=== PATIENT | male | born 1960 | race African-American/Black ===

== ENCOUNTER → 2016-06-10 | Outpatient (CLI) | payer BC, OTHER ==
[2016-06-10 14:31] LABS: APPEARANCE,URINE CLEAR; BILIRUBIN,URINE NEGATIVE (NEGATIVE); GLUCOSE, URINE >=500 mg/dL (NEGATIVE); KETONES,URINE NEGATIVE (NEGATIVE); LEUKOCYTE ESTERASE,URINE NEGATIVE (NEGATIVE); NITRITE,URINE NEGATIVE (NEGATIVE); PROTEIN,URINE 30 mg/dL (NEGATIVE); URINE SPECIFIC GRAVITY 1.028; UROBILINOGEN,URINE NEGATIVE mg/dL (<2.0)
[2016-06-10 14:39] LABS: ABSOLUTE EOSINOPHILS # (AUTO) 0.1 10^3/uL (0.0-0.6); ABSOLUTE MONOCYTES (AUTO) 0.6 10^3/uL (0.1-1.4); ABSOLUTE NEUT (AUTO) 4.7 10^3/uL (1.7-8.2); BASOPHILS % (AUTO) 0.4 % (0-2); EOSINOPHILS % (AUTO) 2.1 % (0-6); HEMOGLOBIN 13.6 g/dL (13.5-17.0); HGB HCT DIFFERENCE -1.2; MEAN CORPUSCULAR HEMOGLOBIN 29.5 pg (27.0-33.4); MEAN CORPUSCULAR HGB CONC 32.4 g/dL (32.0-36.0); MEAN CORPUSCULAR VOLUME 91 fl (80-97); MONOCYTES % (AUTO) 9.6 % (3-13); RED BLOOD COUNT 4.62 10^6/uL (4.35-5.55); RED CELL DISTRIBUTION WIDTH 15.1 % (11.5-14.0); SEGMENTED NEUTROPHILS % (AUTO) 72.9 % (42-78); WHITE BLOOD COUNT 6.4 10^3/uL (4.0-10.5)
[2016-06-10 15:03] LABS: ANION GAP 10 (5-19); BLOOD UREA NITROGEN 18 mg/dL (7-20); CALCIUM 9.8 mg/dL (8.4-10.2); CARBON DIOXIDE 30 mmol/L (22-30); CHLORIDE 105 mmol/L (98-107); CREATININE RESULT 0.91 mg/dL (0.52-1.25); GLUCOSE 200 mg/dL (75-110); POTASSIUM 4.7 mmol/L (3.6-5.0); SODIUM 145.2 mmol/L (137-145)
--- NOTE | 2016-06-11 09:22 | EKG REPORT ---
SEVERITY:- OTHERWISE NORMAL ECG - SINUS RHYTHM BORDERLINE LEFT AXIS DEVIATION : Confirmed by: Rola Marcial 11-Jun-2016 09:20:55
== END ==
LOC: OD 12:21
PROVIDERS: ATTEND Orthopaedic Surgery
DX: Z01.810 Encounter for preprocedural cardiovascular examination (principal); Z01.811 Encounter for preprocedural respiratory examination; Z01.818 Encounter for other preprocedural examination; Z79.899 Other long term (current) drug therapy; E11.9 Type 2 diabetes mellitus without complications; M70.22 Olecranon bursitis, left elbow
CPT/HCPCS: 36415; 71020; 80048; 81001; 83036; 85025; 93005; 93010

== ENCOUNTER → 2016-06-18 | Outpatient (CLI) | payer BC, OTHER ==
--- NOTE | 2016-06-18 19:44 | XCELERA REPORT ---
[address] [address] Transthoracic Echocardiogram Report Name: GINNY QUINTEROS Age: 56 yrs Gender: Male : 1960 Patient Status: Outpatient Patient Location: Study Date: 06/18/2016 01:55 PM Height: 74 in Weight: 266 lb BSA: 2.5 m2 Reason For Study: Z13.6 SCREENING FOR CARDIAC DISORDER Ordering Physician: ALLEN YODER PA-C Performed By: Maxine Garcia Interpretation Summary Very mild AV sclerosis with no doppler evidence of , and no AR, but AV configuration not clear. MV appears normal , no MS no MVP and no MR, and borderline LA enlargement. Mild asymmetric LVH , IVS prob 16 mm and PW 13 mm, normal LVEF 55-60% with stage I LV diastolic dysfunction. Not all LV segments imaged, see diagram , most segments imaged appeared to contract and moved normally. Right heart poorly visualised, unable to r/o pulm hypertension since TR not seen not sampled. MMode/2D Measurements \T\ Calculations RVDd: 2.8 cm LVIDd: 5.2 cmFS: 30.7 % Ao root diam: 3.7 cm IVSd: 1.3 cm LVIDs: 3.6 cmEDV(Teich): 130.6 ml LVPWd: 1.3 cmESV(Teich): 55.0 ml Ao root area: 10.9 cm2 EF(Teich): 57.9 % LA dimension: 4.3 cm LVOT diam: 2.7 cm LVOT area: 5.6 cm2 Doppler Measurements \T\ Calculations MV E max kalin: MV P1/2t max kalin: Ao V2 max: LV V1 max P.8 cm/sec 55.5 cm/sec 130.9 cm/sec 4.6 mmHg MV A max kalin: MV P1/2t: 57.1 msec Ao max PG: LV V1 max: 63.8 cm/sec MVA(P1/2t): 3.9 cm2 6.9 mmHg 106.8 cm/sec MV E/A: 0.86 MV dec slope: ANKIT(V,D): 4.6 cm2 285.0 cm/sec2 MV dec time: 0.20 sec PA V2 max: 77.5 cm/sec PA max P.4 mmHg Left Ventricle The left ventricle is normal in size. There is moderate asymmetric left ventricular hypertrophy. The left ventricular ejection fraction is normal. LV EF is 55-60%. Doppler measurements suggest impaired left ventricular relaxation, which is associated with grade I/IV or mild diastolic dysfunction. Regional wall motion abnormalities cannot be excluded due to limited visualization. There is no thrombus. Right Ventricle The right ventricle is not well visualized secondary to technical limitations. Atria Right atrium not well visualized secondary to technical limitations. The left atrium is mildly dilated. The interatrial septum is intact with no evidence for an atrial septal defect. Mitral Valve The mitral valve is grossly normal. There is no mitral annular calcification. There is no evidence of mitral valve prolapse. There is no vegetation seen on the mitral valve. There is no mitral valve stenosis. There is no mitral regurgitation noted. Aortic Valve The aortic valve opens well. The aortic valve is not well visualized secondary to technical limitations. Cannot exclude aortic valvular vegetation. There is no aortic valve stenosis. No aortic regurgitation is present. Tricuspid Valve The tricuspid valve is not well visualized secondary to technical limitations. No tricuspid regurgitation. Pulmonic Valve The pulmonic valve is not well visualized. Great Vessels The aortic root is normal size. Effusions Minimal pericardial effusion. I WMSI = 1.00 % Normal = 100 Segments Size X - Cannot 1 - Normal 2 - 3 - Akinetic4 - 1-2 small Interpret Hypokinetic Dyskinetic 3-5 moderate 5 - 6-14 large Aneurysmal 15-16 diffuse : ALLEN YODER PA-C > Dennis Lamb
== END ==
LOC: SP 13:24
PROVIDERS: ATTEND Physician Assistant
DX: Z13.6 Encounter for screening for cardiovascular disorders (principal)
CPT/HCPCS: 93306

== ENCOUNTER 2016-06-25 08:34 | Day surgery (SDC) | payer BC, OTHER ==
[~2016-06-25 08:34] MED LIST: CEFAZOLIN 2 GM/D5W RTU 2 GM/50 ML RTUPB IV PRN; LACTATED RINGERS 1000 ML IV PRN
[2016-06-25] MEDS ORDERED: ONDANSETRON HCL INJ/PF 4 MG/2 ML SDV IV PRN (09:07)
[2016-06-25] MEDS ORDERED: MEPERIDINE HCL/PF INJ 25 MG/1 ML DISP.SYRIN IV PRN (09:07)
[2016-06-25] MEDS ORDERED: PROMETHAZINE HCL INJ 25 MG/1 ML VIAL IV PRN (09:07)
[2016-06-25] MEDS ORDERED: MORPHINE SULFATE 10 MG/ML INJ IV PRN (09:07)
[2016-06-25] MEDS ORDERED: DIPHENHYDRAMINE HCL 50 MG/ML VIAL IV PRN (09:07)
[2016-06-25] MEDS ORDERED: FENTANYL CITRATE INJ/PF 100 MCG/2 ML AMPUL IV PRN ×3 (09:07)
[2016-06-25] MEDS ORDERED: PROPOFOL INJ 200 MG/20 ML VIAL IV ONE (09:13)
[2016-06-25] MEDS ORDERED: MIDAZOLAM 2 MG/2 ML INJ ONE (09:13)
[2016-06-25] MEDS ORDERED: HYDROMORPHONE HCL INJ/PF 2 MG/ML AMPULE ONE (09:13)
[2016-06-25] MEDS ORDERED: FENTANYL CITRATE INJ/PF 100 MCG/2 ML AMPUL ONE (09:13)
[2016-06-25] MEDS ORDERED: ACETAMINOPHEN 100 ML IV ONE (09:13)
[2016-06-25] MEDS ORDERED: BUPIVACAINE HCL 0.25 % INJ/PF (2.5 MG/1 ML) 30 ML VIAL ONE (10:12)
[2016-06-25] MEDS ORDERED: SUCCINYLCHOLINE CHLORIDE INJ 200 MG/10 ML VIAL ONE (10:16)
--- NOTE | 2016-06-25 10:41 | Operative Report ---
Operative Report DATE OF SURGERY: 06/25/16 PREOPERATIVE DIAGNOSIS: Left olecranon bursitis OPERATION: Left olecranon bursa excision SURGEON: ANGY SHEPHERD ANESTHESIA: GA TISSUE REMOVED OR ALTERED: Bursa to pathology ESTIMATED BLOOD LOSS: 75 PROCEDURE: With the patient is sloppy right lateral decubitus position on the operating table the left upper extremity is rated across his chest and prepped and draped in a sterile fashion. A longitudinal incision was made over the medial third of the olecranon bursa which is easily palpable. Sharp dissection was used to carry the incision through the subcutaneous fat. The bursa is then enucleated by soft tissue blunt dissection over its entire border. The deep dissection is down on at the level of the olecranon. The ulnar nerve is identified and protected throughout the dissection. The wound is then irrigated. Hemostasis obtained with electrocautery. The wound is reapproximated cemented Vicryl followed by arielle. A sterile compressive dressing was applied and the patient 's returned to PACU in satisfactory condition.
[2016-06-25] MEDS ORDERED: OXYCODONE HCL IR 5 MG TABLET PO PRN (11:19)
[2016-06-25] MEDS ORDERED: ONDANSETRON 4 MG TAB.RAPDIS SL PRN (11:19)
[2016-06-25 13:08] VITALS: BP 116/71
== END 2016-06-25 12:15 | disposition home or self-care (01) ==
LOC: OROUT 08:34
PROVIDERS: ATTEND Orthopaedic Surgery
PROC: 0MB Bursae and Ligaments, Excision (ICD-10-PCS; principal; 2016-06-25 10:00)
DX: M70.22 Olecranon bursitis, left elbow (principal); M25.822 Other specified joint disorders, left elbow; I10 Essential (primary) hypertension; E11.9 Type 2 diabetes mellitus without complications; E78.5 Hyperlipidemia, unspecified; Z79.84 Long term (current) use of oral hypoglycemic drugs; Z79.899 Other long term (current) drug therapy; Z88.6 Allergy status to analgesic agent; Z79.4 Long term (current) use of insulin
CPT/HCPCS: 82962; 88304 ×2; 24105; J2250; J1170; J0330; J2704; J0690; J0131; 1710; J3010

== ENCOUNTER → 2017-01-31 | Outpatient (CLI) | payer BC, OTHER ==
--- NOTE | 2017-01-31 10:21 | RADIOLOGY REPORT (SQ) ---
EXAM DESCRIPTION: CT LUMBAR SPINE WITHOUT COMPLETED DATE/TIME: 01/31/2017 9:25 am REASON FOR STUDY: LUMBOSACRAL RADICULOPATHY M54.17 RADICULOPATHY, LUMBOSACRAL REGION COMPARISON: None. TECHNIQUE: Axial images acquired through the lumbar spine without intravenous contrast. Images revi ewed with lung, soft tissue and bone windows. Reconstructed coronal and sagittal MPR images reviewed . All images stored on PACS. All CT scanners at this facility use dose modulation, iterative reconstruction, and/or weight based d osing when appropriate to reduce radiation dose to as low as reasonably achievable (ALARA). [facility]: Dose Right [facility]: CareDose [facility]: Dose Right [facility]: Teradose 4D [facility]: [employer] RADIATION DOSE: Up-to-date CT equipment and radiation dose reduction techniques were employed. CTDIv ol: 38.3 mGy. DLP: 1259 mGy-cm. mGy. LIMITATIONS: None. FINDINGS: SEGMENTATION: Normal. No transitional anatomy. ALIGNMENT: Grade 1 anterolisthesis of L5 over S1 is present. VERTEBRAL BODIES: No fractures. No dislocation. No acute findings. DISCS: The T12-L1, L1-2 and L2-3 levels are unremarkable. At L3-4, broad diffuse posterior disc bulging is present with moderate bilateral facet and ligament h ypertrophy. This causes mild central canal stenosis. There is moderate right and left foraminal pierce rowing related to bilateral facet and ligament hypertrophy and disc bulging. No definite exiting L3 nerve root impingement. At L4-5, patient is post discectomy and fusion. There is sclerosis adjacent to the disc space prosth eses. Patient is post bilateral laminectomy with bone graft material. There is artifact at L4-5 fro m transpedicular screws and dorsal fixation plates. No gross central canal or significant L4-5 sg inal stenosis. L5-S1 is post and a failed anterior fusion, with a screw along the anterior inferior aspect of the L5 vertebral body. Patient is post posterior fusion, with transpedicular screws and dorsal fixation pl ates. Bilateral laminectomy. No gross central canal narrowing at L5-S1. No significant right sg inal narrowing. There is moderate left foraminal narrowing with effacement of the fat around the lef t L5 nerve root in the neural foramen. PEDICLES, TRANSVERSE PROCESSES: No fractures. No dislocation. No acute findings. FACETS, POSTERIOR ELEMENTS: No fractures. No dislocation. Multilevel facet arthropathy. HARDWARE: Bilateral transpedicular screws with dorsal anchoring fixation plates at L4, L5, and the po sterior innominate bone level, with screws along the posterior innominate bones. VISUALIZED RIBS: No fractures. SOFT TISSUES: No significant or acute finding in adjacent soft tissues. OTHER: Vacuum phenomenon at the bilateral SI joints IMPRESSION: Post surgical and degenerative changes as above TECHNICAL DOCUMENTATION: JOB ID: [id number] Quality ID # [id number]: Final reports with documentation of one or more dose reduction techniques (e.g., Au tomated exposure control, adjustment of the mA and/or kV according to patient size, use of iterative reconstruction technique) 2010 [employer]- All Rights Reserved
== END ==
LOC: RAD 09:06
PROVIDERS: ATTEND Nurse Practitioner
DX: M54.17 Radiculopathy, lumbosacral region (principal)
CPT/HCPCS: 72131

== ENCOUNTER → 2017-07-22 | Outpatient (CLI) | payer BC, OTHER ==
--- NOTE | 2017-07-23 08:04 | XCELERA REPORT ---
[address] [address] Lower Extremity Venous Evaluation Name: GINNY QUINTEROS Age: 57 yrs Gender: Male : 1960 Patient Status: Outpatient Patient Location: Study Date: 07/22/2017 02:51 PM Procedure: Color flow and duplex imaging bilaterally of the veins of the lower extremities as well as the Common Femoral veins. Reason For Study: BLE EDEMA Ordering Physician: ADWOA HILTON Performed By: Maxine Garcia Right Sided Venous Evaluation Normal vessel filling wall to wall, compression and augmentation as well as Colour flow down to the infrageniculate veins. Left Sided Venous Evaluation Normal vessel filling wall to wall, compression and augmentation as well as Colour flow down to the infrageniculate veins. Interpretation Summary No duplex evidence of DVT or obstruction in the bilateral lower extremities. : ADWOA HILTON > Keith Alejo
== END ==
LOC: SP 14:36
PROVIDERS: ATTEND Family Medicine
DX: R60.0 Localized edema (principal)
CPT/HCPCS: 93970

== ENCOUNTER → 2019-05-16 | Outpatient (CLI) | payer BC, OTHER ==
--- NOTE | 2019-05-16 17:44 | RADIOLOGY REPORT (SQ) ---
EXAM DESCRIPTION: HIP RIGHT AP/LATERAL COMPLETED DATE/TIME: 05/16/2019 5:28 pm REASON FOR STUDY: RT HIP PAIN M25.551 PAIN IN RIGHT HIP COMPARISON: None. NUMBER OF VIEWS: Two views. TECHNIQUE: AP pelvis and additional frog-leg view of the right hip. LIMITATIONS: None. FINDINGS: MINERALIZATION: Normal. RIGHT HIP: No fracture or dislocation. No worrisome bone lesions. No contour deformity. No joint sp stoney narrowing. LEFT HIP: No fracture or dislocation. No worrisome bone lesions. PUBIS AND ISCHIUM: No fracture. PELVIS: No fracture. SACRUM: No fracture or dislocation. No worrisome bone lesions. LOWER LUMBAR SPINE: Surgical changes and hardware. SOFT TISSUES: No findings. OTHER: No other significant finding. IMPRESSION: NEGATIVE STUDY OF THE RIGHT HIP. NO EXPLANATION FOR PAIN. TECHNICAL DOCUMENTATION: JOB ID: [id number] [employer]- All Rights Reserved Reading location - IP/workstation name: [email or web address]
== END ==
LOC: OD 16:52
PROVIDERS: ATTEND Physician Assistant
DX: M25.551 Pain in right hip (principal)

== ENCOUNTER → 2020-01-10 | Outpatient (CLI) | payer OTHER, BC ==
[2020-01-10 17:29] LABS: ABSOLUTE EOSINOPHILS # (AUTO) 0.1 10^3/uL (0.0-0.6); ABSOLUTE LYMPHOCYTES (AUTO) 1.4 10^3/uL (0.5-4.7); ABSOLUTE MONOCYTES (AUTO) 0.8 10^3/uL (0.1-1.4); ABSOLUTE NEUT (AUTO) 5.5 10^3/uL (1.7-8.2); BASOPHILS % (AUTO) 0.4 % (0-2); EOSINOPHILS % (AUTO) 1.3 % (0-6); HEMATOCRIT 44.1 % (37.9-51.0); HEMOGLOBIN 14.6 g/dL (13.5-17.0); LYMPHOCYTES % (AUTO) 18.5 % (13-45); MEAN CORPUSCULAR HEMOGLOBIN 31.6 pg (27.0-33.4); MEAN CORPUSCULAR HGB CONC 33.1 g/dL (32.0-36.0); MEAN CORPUSCULAR VOLUME 96 fl (80-97); MONOCYTES % (AUTO) 9.9 % (3-13); PLATELET COUNT 229 10^3/uL (150-450); RED BLOOD COUNT 4.61 10^6/uL (4.35-5.55); RED CELL DISTRIBUTION WIDTH 13.6 % (11.5-14.0); SEGMENTED NEUTROPHILS % (AUTO) 69.9 % (42-78); TOTAL CELLS COUNTED % (AUTO) 100 %; WHITE BLOOD COUNT 7.8 10^3/uL (4.0-10.5)
[2020-01-10 17:51] LABS: ALBUMIN 4.3 g/dL (3.5-5.0); ALKALINE PHOSPHATASE 112 U/L (38-126); ANION GAP 10 (5-19); ASPARTATE AMINO TRANSFERASE 34 U/L (17-59); BILIRUBIN,DIRECT 0.3 mg/dL (0.0-0.4); BILIRUBIN,TOTAL 0.5 mg/dL (0.2-1.3); BLOOD UREA NITROGEN 21 mg/dL (7-20); C-REACTIVE PROTEIN < 5.0 mg/L (<10.0); CALCIUM 9.8 mg/dL (8.4-10.2); CARBON DIOXIDE 26 mmol/L (22-30); CHLORIDE 107 mmol/L (98-107); GLUCOSE 148 mg/dL (75-110); POTASSIUM 4.5 mmol/L (3.6-5.0); TOTAL PROTEIN 7.3 g/dL (6.3-8.2)
[2020-01-10 18:16] LABS: ERYTHROCYTE SEDIMENTATION RATE 14 mm/hr (0-20)
== END ==
LOC: OD 15:59
PROVIDERS: ATTEND Nurse Practitioner Family
DX: L97.222 Non-pressure chronic ulcer of left calf with fat layer exposed (principal)
CPT/HCPCS: 36415; 80053; 85025; 85652; 86140